=== PATIENT | male | born 1975 | race Caucasian/White ===

== ENCOUNTER 2022-01-11 15:17 | Day surgery (SDC) | payer MEDICARE, OTHER ==
[~2022-01-11] VITALS: Ht 172.7 cm; Wt 92.1 kg
[2022-01-11] MEDS ORDERED: Percocet 5-3251 EACH PO (15:44)
[2022-01-11] MEDS ORDERED: IBU800 MG PO (15:45)
[2022-01-11] MEDS ORDERED: GABA300 PO (15:45)
== END 2022-01-11 16:52 | disposition home or self-care (01) ==
LOC: ORSCSDS 15:17
PROVIDERS: Ophthalmology
PROC: 08RK3JZ Replacement of Left Lens with Synthetic Substitute, Percutaneous Approach (ICD-10-PCS; principal; 2022-01-11 16:30)
DX: H25.12 Age-related nuclear cataract, left eye (principal); Z79.899 Other long term (current) drug therapy
CPT/HCPCS: J2001; J2250; J3010; J3301; J7040; V2632

== ENCOUNTER 2022-05-02 01:27 | Emergency (ER) | payer MEDICARE, OTHER ==
[~2022-05-02] VITALS: Ht 172.7 cm; Wt 90.7 kg
[~2022-05-02 01:27] MED LIST: GABA300 PO; IBU800 MG PO; Percocet 5-3251 EACH PO
[2022-05-02] MEDS ORDERED: ELIQUIS5 M2 PO (06:21)
== END 2022-05-02 06:32 | disposition home or self-care (01) ==
LOC: ER 01:27
DX: I82.412 Acute embolism and thrombosis of left femoral vein (principal); Z88.8 Allergy status to other drugs, medicaments and biological substances
CPT/HCPCS: 93971